=== PATIENT | female | born 1960 | race Caucasian/White ===

== ENCOUNTER 2023-05-17 21:40 | Emergency (ER) | payer BC ==
[2023-05-17] MEDS ORDERED: Take Home: traMADol 50 MG, 4 Tab Pack PO ONE (21:52)
== END 2023-05-17 22:06 | disposition home or self-care (01) ==
LOC: VM.ED 21:40
DX: S63.502A Unspecified sprain of left wrist, initial encounter (principal); I10 Essential (primary) hypertension; E11.9 Type 2 diabetes mellitus without complications; E03.9 Hypothyroidism, unspecified; Z88.1 Allergy status to other antibiotic agents; Z79.899 Other long term (current) drug therapy; X50.1XXA Overexertion from prolonged static or awkward postures, initial encounter
CPT/HCPCS: 99283; A9270-GY